=== PATIENT | female | born 1940 | race American Indian/Alaskan Native ===

== ENCOUNTER 2017-04-15 05:45 | Emergency (ER) | payer MEDICARE ==
[~2017-04-15 05:45] MED LIST: ADRENALIN ONE; INTROPIN DRIP 800 MG/D5W 250 ML IV ONE
[2017-04-15] MEDS ORDERED: NACL 0.9% 1000 ML 2,000 ML ONE (05:54)
[2017-04-15] MEDS ORDERED: LEVOPHED DRIP 4 MG/NS 250 ML 4 MG/250 ML BAG IV ONE (05:55)
[2017-04-15] MEDS ORDERED: NACL 0.9% 1000 ML 2,000 ML IV ONE (06:00)
[2017-04-15] MEDS ORDERED: LEVOPHED DRIP 4 MG/NS 250 ML 4 MG/250 ML BAG IV SCH (06:00)
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
[2017-04-15 06:26] LABS: ISTAT Base Excess -10; ISTAT HCO3 17.1; ISTAT PH 7.249 (7.35-7.45); ISTAT PO2 353 (80-105); ISTAT SO2 100; ISTAT TCO2 18
[2017-04-15 06:49] LABS: Basophils % (Auto) 0.5 % (0.0-1.8); Eosinophils % (Auto) 0.3 % (0.0-4.3); Hematocrit 21.5 % (30.3-42.9); Hemoglobin 6.7 gm/dl (10.1-14.3); Mean Corpuscular HGB Conc 31 % (30-34); Mean Corpuscular Hemoglobin 31 pg (28-32); Mean Corpuscular Volume 99 fl (79-97); Red Blood Count 2.16 M/mm3 (3.65-5.03); Red Cell Distribution Width 15.1 % (13.2-15.2); White Blood Count 5.6 K/mm3 (4.5-11.0)
[2017-04-15 06:54] LABS: Platelet Count 95 K/mm3 (140-440)
[2017-04-15] MEDS ORDERED: PITRESSin 20 UNIT in NACL 0.9% 100 ML IV SCH (07:00)
[2017-04-15 07:18] VITALS: BP 44/25
[2017-04-15 07:18] LABS: Alanine Aminotransferase 15 units/L (7-56); Albumin 1.7 g/dL (3.9-5); Albumin/Globulin Ratio 1.7 %; Alkaline Phosphatase 25 units/L (35-129); Anion Gap 19 mmol/L; BUN/Creatinine Ratio 13.75; Blood Urea Nitrogen 11 mg/dL (7-17); Calcium 6.2 mg/dL (8.4-10.2); Carbon Dioxide 16 mmol/L (22-30); Chloride 113.3 mmol/L (98-107); Glucose 292 mg/dL (65-100); Potassium 3.1 mmol/L (3.6-5.0); Sodium 145 mmol/L (137-145); Total Protein 2.7 g/dL (6.3-8.2)
[2017-04-15 07:32] LABS: INR TNR (0.87-1.13)
[2017-04-15 07:33] LABS: Partial Thromboplastin Time TNR Sec. (24.2-36.6)
== END 2017-04-15 07:12 | disposition other institution (70) ==
LOC: ED 05:45
DX: S01.90XA Unspecified open wound of unspecified part of head, initial encounter (principal); T79.4XXA Traumatic shock, initial encounter; W34.00XA Accidental discharge from unspecified firearms or gun, initial encounter; Y93.89 Activity, other specified; Y99.9 Unspecified external cause status; Y92.89 Other specified places as the place of occurrence of the external cause
CPT/HCPCS: 31500; 36415; 36430; 36556; 80053; 82550; 82803; 85025; 86850; 86900; 86901; 86920; 93005; 93010; 99291; G0480; J0171; J1265; J7030; P9016; 80320; 94002